=== PATIENT | female | born 1945 | race Caucasian/White ===

== ENCOUNTER 2016-11-22 12:30 | Emergency (ER) | payer OTHER ==
--- NOTE | 2016-11-22 14:35 | DIAGNOSTIC IMAGING REPORT ---
PROCEDURE: US VENOUS - LEFT EXT INDICATION: PAIN TECHNIQUE: Duplex sonography of the deep venous system in the left lower extremity was performed. Compression and augmentation techniques were used. COMPARISON: None. FINDINGS: There is an occlusive mid and nonocclusive proximal greater saphenous vein thrombus. Otherwise, common femoral, superficial femoral, popliteal and calf veins are patent with normal compression. IMPRESSION: 1. Left lower extremity superficial phlebitis 2. Results discussed with Yoana Guathier.
--- NOTE | 2016-11-22 15:14 | ED NURSING NOTES ---
Clinical Report - Nurses [facility] [address] [place] [address] 11/22/2016 12:35 Patient: ERON SNELL TRIAGE Triage time 12:43. Acuity: LEVEL 3. Chief Complaint: INJURY TO THE LEFT THIGH. Alert. No acute distress. GRACIE COMA SCORE: [place] Coma Scale: 15- eyes open spontaneously (4); best verbal response- oriented x 4 (5); best motor response- obeys commands (6). --12:59 Jaylin Rodas R.N. 12:43 11/22/16. BP: 129/60. HR: 80. RR: 18. O2 saturation: 99%. Temp: 97.7 F. Pain level now: 4/10. Additional comments: 7, when walking. --12:59 Jaylin Rodas R.N. 12:43 11/22/16. BP: 129/60. HR: 80. RR: 18. O2 saturation: 99%. Temp: 97.7 F. Pain level now: 4/10. Additional comments: 7, when walking. --12:59 Jaylin Rodas R.N. Weight: 74.8 kg stated. Height/Length: 62 inches Per Patient. BMI: 30.2. --12:58 Jaylin Rodas R.N. Medications Vits, multi day . --12:48 Jaylin Rodas R.N. PHENobarbital Oral 30mg am 2 tabs pm . --12:50 Jaylin Rodas R.N. Dilantin Oral 100 mg am, 2 pills hs , m, w, f, / s,s,t, th 2 tabs am 2 tabs pm . --12:51 Jaylin Rodas R.N. Lipitor Oral 20 mg, daily. --12:54 Jaylin Rodas R.N. Singulair Oral 10 mg, daily. --12:54 Jaylin Rodas R.N. Piroxicam Oral (Capsule 20 mg) 1 capsule, as needed. --12:55 Jaylin Rodas R.N. Omeprazole Oral 20 mg, daily. --12:55 Jaylin Rodas R.N. Medication/allergy information source: the patient. --12:59 Jaylin Rodas R.N. Allergies Latex. --12:55 Jaylin Rodas R.N. History Historian: patient. Arrived walking. Primary physician (Tabatha). This occurred (10 days ago). Occurred at home. Mechanism of injury: a blow (Ran into something, inside the home, can't). She has had trouble walking. The patient has been limping when trying to walk. 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 PAST MEDICAL HX: Tetanus status: more than 5 years ago. The patient is post-menopausal. ( seizures,). SOCIAL HX: Never smoker. No alcohol use or drug use. FALL RISK ASSESSMENT: Fall risk assessment completed. No fall risk identified. NUTRITIONAL RISK ASSESSMENT: The nutritional risk assessment revealed no deficiencies. FUNCTIONAL ASSESSMENT: Functional assessment: no impairments noted. LEARNING NEEDS ASSESSMENT: The learning needs assessment revealed no barriers. SKIN INTEGRITY ASSESSMENT: Skin integrity risk assessment completed. No skin integrity risk identified. --12:59 Jaylin Rodas R.N. PROBLEMS: Seizure. Reflux. Hypercholesterolemia. Arthritis. --12:57 Jaylin Rodas R.N. ADDITIONAL SURGERIES: no known surgeries. Interventions ID band on patient. To room. --12:59 Jaylin Rodas R.N. PHYSICAL ASSESSMENT Ambulatory to room. Patient gowned. GENERAL / NEURO / PSYCH: Appears in pain and anxious. EXTREMITIES: Limited ROM present. Left thigh: tenderness, swelling and erythema. SKIN: Skin is warm and dry. --13:00 Jaylin Rodas R.N. NURSING PROGRESS NOTES Cold pack applied. Extremity elevated. Patient gowned. Two patient identifiers checked. Call light placed in reach. Side rails up x 2. Bed placed in lowest position. Brakes of bed on. Patient ready for evaluation. --13:00 Jaylin Rodas R.N. 16:01 11/22/2016 Ceftriaxone IM 1 gm given. Given in the left gluteus damaris. Allergies verified and confirmed 5 rights. --16:06 Jaylin Rodas R.N. DISPOSITION / DISCHARGE 16:00. Condition at departure: improved. No learning barriers present. Discharge instructions provided and reviewed with the patient. Reviewed medication(s) side effects, precautions, dosing and course information. Prescription(s) given to the patient. Patient verbalized understanding. Written instructions provided in Tajik. The patient was discharged home. She left the Emergency Department ambulatory and via private vehicle. Patient driving. Medication list reviewed and validated. --18:43 Jaylin Rodas R.N. 16:02 11/22/16. BP: 117/64. HR: 84. RR: 16. O2 saturation: 100%. Temp: deferred. Pain level now: 08/26. 14:21 11/22/16. BP: 126/77. HR: 74. RR: 18. O2 saturation: 99%. Pain level now: 09/23. 12:43 11/22/16. BP: 129/60. HR: 80. RR: 18. O2 saturation: 99%. Temp: 97.7 F. Pain level now: 10. Additional comments: 7, when walking. --18:43 Jaylin Rodas R.N. Locked/Released at 11/22/2016 18:44 by Jaylin Rodas R.N.
--- NOTE | 2016-11-22 15:14 | ED ORDER SUMMARY ---
..... Patient: ERON SNELL OrderSheet [facility] VisitID: [id number] [address] [place] [address] 71y, F Registration Date/Time: 11/22/2016 ORDER SHEET Weight: 74.8 kg (stated) Allergies: Latex GENERAL ORDERS: US Venous Left Urgent (13:05 11/22/2016 HBivens A.R.N.P.) (Ack 13:07 Henrique) (15:29 MWinterer R.N.) MEDICATION ORDERS: Ceftriaxone IM 1 gm (NOW) (14:59 11/22/2016 HBivens A.R.N.P.) (Ack 15:33 MWinterer R.N.) (16:06 Paul R.N.) IV FLUIDS: ORDER SHEET NOTES: [Electronically signed by Yoana GauthierRCourtN.PCourt (18:02 11/22/2016)] [Electronically signed by Jaylin Rodas R.N. (18:44 11/22/2016)] [Electronically locked/signed by Jaylin Rodas R.N. (18:44 11/22/2016)]
--- NOTE | 2016-11-22 15:14 | ED CLINICAL REPORT ---
Clinical Report - Physicians/Mid Levels [facility] [address] [place] [address] 11/22/2016 12:35 Patient: ERON SNELL Time Seen: 1255; initial patient contact, initial documentation, patient care assumed. Arrived- By private vehicle. Historian- patient. HISTORY OF PRESENT ILLNESS Chief Complaint: LOWER EXTREMITY PAIN. Not worsened by anything and relieved by anything. Severity is described as being mild. The quality is noted to be "pain". No radiation. This started about 10 days ago and is still present and worsening. Symptoms located in the area of the left thigh. The patient has had moderate redness (small red hard area to inner thigh started about 10 days ago, now there is surrounding redness has gotten bigger, but the hard spot same size). No swelling, bladder dysfunction, bowel dysfunction, sensory loss or motor loss. She has had mild difficulty walking. It has been associated with pain in the left leg. Patient denies an injury. Similar symptoms previously: None. Recent medical care: Not recently seen/assessed. REVIEW OF SYSTEMS No chest pain, difficulty breathing or fever. All systems otherwise negative, except as recorded above. PAST HISTORY See nurses notes. ( PROBLEMS: Seizure. Reflux. Hypercholesterolemia. Arthritis. --12:57 Jaylin Rodas R.N. ADDITIONAL SURGERIES: no known surgeries.). SOCIAL HISTORY Never smoker. No alcohol use or drug use. No recent travel. Is a local resident. FAMILY HISTORY Negative. ADDITIONAL NOTES The nursing notes have been reviewed with agreement regarding the chief complaint, HPI, ROS, PMH and patient medications and allergies. PHYSICAL EXAM Vital Signs: 11/22/2016 12:43 BP: 129/60. HR: 80. RR: 18. O2 saturation: 99%. Temp: 97.7 F. Pain level now: 4/10. Have been reviewed as normal and appear to be correct. Appearance: Alert. Oriented X3. No acute distress. Eyes: Pupils equal, round and reactive to light. Eyes normal inspection. Neck: Normal inspection. Neck supple. CVS: Normal heart rate and rhythm. Heart sounds normal. Respiratory: No respiratory distress. Breath sounds normal. Back: Normal inspection. No tenderness. ROM normal. Skin: Skin intact. Skin warm and dry. Normal skin color. Normal skin turgor. Extremities: Left thigh: moderate erythema and mild tenderness located in the medial aspect of upper thigh. Neurovascular intact distally. (pea size hard knot with surrounding erythema, pt had ice on it prior to exam, so unable to determine how much erythema is from ice or from event, and unable to determine temperature, if area was warm). No swelling, laceration, abrasion, ecchymosis or puncture wound. No foreign body or deformity. Lower extremities exhibit normal ROM. No lower extremity edema. Extremities otherwise negative. Gait: Abnormal gait. Gait not tested due to pain. Neuro: Oriented X 3. No motor deficit. No sensory deficit. LABS, X-RAYS, AND EKG Lower Extremity Sonography: . superficial phlebitis. The study was interpreted by the radiologist and discussed with the radiologist. Interpretation time: 1435. PROGRESS AND PROCEDURES Course of Care: pt thanking me for everything and telling I did such a good job with her who in October also said she was still trying to get financial stuff situated from his , and if I could do abx here and cheap rx that would be helpful, agreed to do $4 abx and shot here 17:15 11/22/16. nurse now telling me pt left and left her papers and rx at bedside. Patient counseled in person regarding the patient's stable condition, test results and diagnosis. 14:55. Differential Diagnosis: Other possible considerations: dvt, cellulitis, abscess, mrsa, dermatitis, fungus, insect bite/sting. Above considerations are based on history, physical exam, reassessment and other information. Differential diagnosis was discussed with patient. Disposition: Discharged home in good and improved condition (15:14). Condition: good and stable. CLINICAL IMPRESSION Superficial thrombophlebitis of the left leg. Not associated with the puerperium, or . INSTRUCTIONS Warnings: GENERAL WARNINGS: Return or contact your physician immediately if your condition worsens or changes unexpectedly, if not improving as expected, or if other problems arise. Specifically return if problem worsens. Prescription Medications: Trimethoprim-Sulfamethoxazole DS: take 1 tablet orally every 12 hours for 10 days. No refill. Follow-up: Follow up with your doctor in about three days even if well. Call for an appointment. Summary of care provided to patient. Understanding of the discharge instructions verbalized by patient. (Electronically signed by Yoana Gauthier A.R.N.P. 11/22/2016 18:02)
--- NOTE | 2016-11-22 15:14 | ED ORDER SUMMARY ---
..... Patient: ERON SNELL OrderSheet [facility] VisitID: [id number] [address] [place] [address] 71y, F Registration Date/Time: 11/22/2016 ORDER SHEET Weight: 74.8 kg (stated) Allergies: Latex GENERAL ORDERS: US Venous Left Urgent (13:05 11/22/2016 HBivens A.R.N.P.) (Ack 13:07 Henrique) (15:29 MWinterer R.N.) MEDICATION ORDERS: Ceftriaxone IM 1 gm (NOW) (14:59 11/22/2016 HBivens A.R.N.P.) (Ack 15:33 MWinterer R.N.) (16:06 Paul R.N.) IV FLUIDS: ORDER SHEET NOTES: [Electronically signed by Yoana GauthierRCourtN.PCourt (18:02 11/22/2016)] [Electronically signed by Jaylin Rodas R.N. (18:44 11/22/2016)] [Electronically locked/signed by Jaylin Rodas R.N. (18:44 11/22/2016)]
--- NOTE | 2016-11-22 15:14 | ED NURSING NOTES ---
Clinical Report - Nurses [facility] [address] [place] [address] 11/22/2016 12:35 Patient: ERON SNELL TRIAGE Triage time 12:43. Acuity: LEVEL 3. Chief Complaint: INJURY TO THE LEFT THIGH. Alert. No acute distress. GRACIE COMA SCORE: [place] Coma Scale: 15- eyes open spontaneously (4); best verbal response- oriented x 4 (5); best motor response- obeys commands (6). --12:59 Jaylin Rodas R.N. 12:43 11/22/16. BP: 129/60. HR: 80. RR: 18. O2 saturation: 99%. Temp: 97.7 F. Pain level now: 4/10. Additional comments: 7, when walking. --12:59 Jaylin Rodas R.N. 12:43 11/22/16. BP: 129/60. HR: 80. RR: 18. O2 saturation: 99%. Temp: 97.7 F. Pain level now: 4/10. Additional comments: 7, when walking. --12:59 Jaylin Rodas R.N. Weight: 74.8 kg stated. Height/Length: 62 inches Per Patient. BMI: 30.2. --12:58 Jaylin Rodas R.N. Medications Vits, multi day . --12:48 Jaylin Rodas R.N. PHENobarbital Oral 30mg am 2 tabs pm . --12:50 Jaylin Rodas R.N. Dilantin Oral 100 mg am, 2 pills hs , m, w, f, / s,s,t, th 2 tabs am 2 tabs pm . --12:51 Jaylin Rodas R.N. Lipitor Oral 20 mg, daily. --12:54 Jaylin Rodas R.N. Singulair Oral 10 mg, daily. --12:54 Jaylin Rodas R.N. Piroxicam Oral (Capsule 20 mg) 1 capsule, as needed. --12:55 Jaylin Rodas R.N. Omeprazole Oral 20 mg, daily. --12:55 Jaylin Rodas R.N. Medication/allergy information source: the patient. --12:59 Jaylin Rodas R.N. Allergies Latex. --12:55 Jaylin Rodas R.N. History Historian: patient. Arrived walking. Primary physician (Tabatha). This occurred (10 days ago). Occurred at home. Mechanism of injury: a blow (Ran into something, inside the home, can't). She has had trouble walking. The patient has been limping when trying to walk. 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 PAST MEDICAL HX: Tetanus status: more than 5 years ago. The patient is post-menopausal. ( seizures,). SOCIAL HX: Never smoker. No alcohol use or drug use. FALL RISK ASSESSMENT: Fall risk assessment completed. No fall risk identified. NUTRITIONAL RISK ASSESSMENT: The nutritional risk assessment revealed no deficiencies. FUNCTIONAL ASSESSMENT: Functional assessment: no impairments noted. LEARNING NEEDS ASSESSMENT: The learning needs assessment revealed no barriers. SKIN INTEGRITY ASSESSMENT: Skin integrity risk assessment completed. No skin integrity risk identified. --12:59 Jaylin Rodas R.N. PROBLEMS: Seizure. Reflux. Hypercholesterolemia. Arthritis. --12:57 Jaylin Rodas R.N. ADDITIONAL SURGERIES: no known surgeries. Interventions ID band on patient. To room. --12:59 Jaylin Rodas R.N. PHYSICAL ASSESSMENT Ambulatory to room. Patient gowned. GENERAL / NEURO / PSYCH: Appears in pain and anxious. EXTREMITIES: Limited ROM present. Left thigh: tenderness, swelling and erythema. SKIN: Skin is warm and dry. --13:00 Jaylin Rodas R.N. NURSING PROGRESS NOTES Cold pack applied. Extremity elevated. Patient gowned. Two patient identifiers checked. Call light placed in reach. Side rails up x 2. Bed placed in lowest position. Brakes of bed on. Patient ready for evaluation. --13:00 Jaylin Rodas R.N. 16:01 11/22/2016 Ceftriaxone IM 1 gm given. Given in the left gluteus damaris. Allergies verified and confirmed 5 rights. --16:06 Jaylin Rodas R.N. DISPOSITION / DISCHARGE 16:00. Condition at departure: improved. No learning barriers present. Discharge instructions provided and reviewed with the patient. Reviewed medication(s) side effects, precautions, dosing and course information. Prescription(s) given to the patient. Patient verbalized understanding. Written instructions provided in Cypriot. The patient was discharged home. She left the Emergency Department ambulatory and via private vehicle. Patient driving. Medication list reviewed and validated. --18:43 Jaylin Rodas R.N. 16:02 11/22/16. BP: 117/64. HR: 84. RR: 16. O2 saturation: 100%. Temp: deferred. Pain level now: 08/26. 14:21 11/22/16. BP: 126/77. HR: 74. RR: 18. O2 saturation: 99%. Pain level now: 09/23. 12:43 11/22/16. BP: 129/60. HR: 80. RR: 18. O2 saturation: 99%. Temp: 97.7 F. Pain level now: 10. Additional comments: 7, when walking. --18:43 Jaylin Rodas R.N. Locked/Released at 11/22/2016 18:44 by Jaylin Rodas R.N.
--- NOTE | 2016-11-22 18:44 | ED DISCHARGE INSTRUCTIONS ---
Patient: ERON SNELL General Instructions [facility] VisitID: [id number] [place] [address] 71y, F Registration Date/Time: 11/22/2016 Superficial thrombophlebitis of the left leg. Not associated with the puerperium, or . INSTRUCTIONS Warnings: GENERAL WARNINGS: Return or contact your physician immediately if your condition worsens or changes unexpectedly, if not improving as expected, or if other problems arise. Specifically return if problem worsens. Prescription Medications: Trimethoprim-Sulfamethoxazole DS: take 1 tablet orally every 12 hours for 10 days. No refill. Follow-up: Follow up with your doctor in about three days even if well. Call for an appointment. Summary of care provided to patient. Understanding of the discharge instructions verbalized by patient. ADDITIONAL INFORMATION Phlebitis, Superficial Phlebitis is the name for inflammation of a vein. This results in local redness, swelling, warmth and pain. This may occur after medicine has been given by vein as a result of the irritating effect of the medicine. It can also occur as a result of IV drug use. Superficial phlebitis involves only those veins close to the surface. There is no danger of a clot traveling to the lung or brain, unlike deep blood clots of the legs. Therefore, this condition can be safely treated at home. Home Care: Heat is helpful. Use a heating pad or soak the inflamed part in a hot tub for 10 minutes at a time. You may use ibuprofen (Motrin, Advil) to control pain, unless another medicine was prescribed. [ NOTE : If you have chronic kidney disease or ever had a stomach ulcer or GI bleeding, talk with your doctor before using these medicines.] If Your Leg Is Affected: Unless pain is severe, you may walk. It is important to sit often and elevate the leg. Avoid prolonged sitting or standing. Use support hose or an elastic wrap to compress the leg and reduce swelling. If Your Arm Is Affected: Elevate the arm. If you were given a sling, take your arm out from time to time and move it around to increase the circulation. Use an elastic wrap if there is a lot of swelling. Follow Up with your doctor as advised. Get Prompt Medical Attention if any of the following occur: Shortness of breath or painful breathing Chest pain or cough Fever of 100.4F (38C) or higher, or as directed by your healthcare provider Increasing swelling or pain Spreading redness Sulfamethoxazole, Trimethoprim Oral tablet What is this medicine? SULFAMETHOXAZOLE; TRIMETHOPRIM or SMX-TMP (suhl fuh meth OK enrike zohl; trye METH oh prim) is a combination of a sulfonamide antibiotic and a second antibiotic, trimethoprim. It is used to treat or prevent certain kinds of bacterial infections. It will not work for colds, flu, or other viral infections. How should I use this medicine? Take this medicine by mouth with a full glass of water. Follow the directions on the prescription label. Take your medicine at regular intervals. Do not take it more often than directed. Do not skip doses or stop your medicine early. Talk to your respiratory practitioner regarding the use of this medicine in children. Special care may be needed. This medicine has been used in children as young as 2 months of age. What side effects may I notice from receiving this medicine? Side effects that you should report to your doctor or health child care center assistant director as soon as possible: allergic reactions like skin rash or hives, swelling of the face, lips, or tongue breathing problems fever or chills, sore throat irregular heartbeat, chest pain joint or muscle pain pain or difficulty passing urine red pinpoint spots on skin redness, blistering, peeling or loosening of the skin, including inside the mouth unusual bleeding or bruising unusually weak or tired yellowing of the eyes or skin Side effects that usually do not require medical attention (report to your doctor or health child care center assistant director if they continue or are bothersome): diarrhea dizziness headache loss of appetite nausea, vomiting nervousness What may interact with this medicine? Do not take this medicine with any of the following medications: aminobenzoate potassium dofetilide metronidazole This medicine may also interact with the following medications: KARISHMA inhibitors like benazepril, enalapril, lisinopril, and ramipril cyclosporine digoxin diuretics indomethacin medicines for diabetes methenamine methotrexate phenytoin potassium supplements pyrimethamine sulfinpyrazone tricyclic antidepressants warfarin What if I miss a dose? If you miss a dose, take it as soon as you can. If it is almost time for your next dose, take only that dose. Do not take double or extra doses. Where should I keep my medicine? Keep out of the reach of children. Store at room temperature between 20 to 25 degrees C (68 to 77 degrees F). Protect from light. Throw away any unused medicine after the expiration date. What should I tell my health care provider before I take this medicine? They need to know if you have any of these conditions: anemia asthma being treated with anticonvulsants if you frequently drink alcohol containing drinks kidney disease liver disease low level of folic acid or [id number]-[id number]-sfnehevue dehydrogenase poor nutrition or malabsorption porphyria severe allergies thyroid disorder an unusual or allergic reaction to sulfamethoxazole, trimethoprim, sulfa drugs, other medicines, foods, dyes, or preservatives or trying to get breast-feeding What should I watch for while using this medicine? Tell your doctor or health child care center assistant director if your symptoms do not improve. Drink several glasses of water a day to reduce the risk of kidney problems. Do not treat diarrhea with over the counter products. Contact your doctor if you have diarrhea that lasts more than 2 days or if it is severe and watery. This medicine can make you more sensitive to the sun. Keep out of the sun. If you cannot avoid being in the sun, wear protective clothing and use a sunscreen. Do not use sun lamps or tanning beds/booths. You have been given the following additional information: Thrombophlebitis, Superficial Sulfamethoxazole, Trimethoprim Oral tablet (Electronically signed by Yoana Gauthier A.R.N.P. 11/22/2016 18:02)
--- NOTE | 2016-11-22 18:44 | ED MAR SUMMARY ---
..... Medication Administration Record [facility] [address] [place] [address] Patient: ERON SNELL Visit ID: [id number] 71y, F Weight: 74.8 kg Height/Length: 62 in BMI: 30.2 ALLERGIES: Latex Given 16:01 11/22/2016 Jaylin Rodas R.N. Medication Administered: CEFTRIAXONE [IM], Dose: 1 gm IM. Medication Ordered: Ceftriaxone IM 1 gm (NOW).
--- NOTE | 2016-11-22 18:44 | ED MED RECONCILIATION SUMMARY ---
Patient: ERON SNELL Medication Reconciliation Report [facility] VisitID: [id number] [address] [place] [place] [address] 71y, F Registration Date/Time: 11/22/2016 Weight: 74.8 kg Height/Length: 62 in. BMI: 30.2 ALLERGIES: Latex The patient's Home Medications are listed below: THE FOLLOWING MEDICATIONS NEED TO BE RECONCILED: Dilantin Oral 100 mg am, 2 pills hs , m, w, f, / s,s,t, th 2 tabs am 2 tabs pm Lipitor Oral 20 mg, daily Omeprazole Oral 20 mg, daily PHENobarbital Oral 30mg am 2 tabs pm Piroxicam Oral (20 mg) 1 capsule Singulair Oral 10 mg, daily Vits, multi day The source(s) of the original Home Medication information: patient The following Medications were given to the patient in the Emergency Department: Ceftriaxone [IM] IM 1 gm, administered: 11/22/2016 4:01:00 PM The following Medications were prescribed to the patient: Trimethoprim-Sulfamethoxazole DS: take 1 tablet orally every 12 hours for 10 days. No refill. -- Yoana Gauthier A.R.N.P.
--- NOTE | 2016-11-22 18:44 | ED MAR SUMMARY ---
..... Medication Administration Record [facility] [address] [place] [address] Patient: ERON SNELL Visit ID: [id number] 71y, F Weight: 74.8 kg Height/Length: 62 in BMI: 30.2 ALLERGIES: Latex Given 16:01 11/22/2016 Jaylin Rodas R.N. Medication Administered: CEFTRIAXONE [IM], Dose: 1 gm IM. Medication Ordered: Ceftriaxone IM 1 gm (NOW).
--- NOTE | 2016-11-22 18:44 | ED DISCHARGE INSTRUCTIONS ---
Patient: ERON SNELL General Instructions [facility] VisitID: [id number] [place] [address] 71y, F Registration Date/Time: 11/22/2016 Superficial thrombophlebitis of the left leg. Not associated with the puerperium, or . INSTRUCTIONS Warnings: GENERAL WARNINGS: Return or contact your physician immediately if your condition worsens or changes unexpectedly, if not improving as expected, or if other problems arise. Specifically return if problem worsens. Prescription Medications: Trimethoprim-Sulfamethoxazole DS: take 1 tablet orally every 12 hours for 10 days. No refill. Follow-up: Follow up with your doctor in about three days even if well. Call for an appointment. Summary of care provided to patient. Understanding of the discharge instructions verbalized by patient. ADDITIONAL INFORMATION Phlebitis, Superficial Phlebitis is the name for inflammation of a vein. This results in local redness, swelling, warmth and pain. This may occur after medicine has been given by vein as a result of the irritating effect of the medicine. It can also occur as a result of IV drug use. Superficial phlebitis involves only those veins close to the surface. There is no danger of a clot traveling to the lung or brain, unlike deep blood clots of the legs. Therefore, this condition can be safely treated at home. Home Care: Heat is helpful. Use a heating pad or soak the inflamed part in a hot tub for 10 minutes at a time. You may use ibuprofen (Motrin, Advil) to control pain, unless another medicine was prescribed. [ NOTE : If you have chronic kidney disease or ever had a stomach ulcer or GI bleeding, talk with your doctor before using these medicines.] If Your Leg Is Affected: Unless pain is severe, you may walk. It is important to sit often and elevate the leg. Avoid prolonged sitting or standing. Use support hose or an elastic wrap to compress the leg and reduce swelling. If Your Arm Is Affected: Elevate the arm. If you were given a sling, take your arm out from time to time and move it around to increase the circulation. Use an elastic wrap if there is a lot of swelling. Follow Up with your doctor as advised. Get Prompt Medical Attention if any of the following occur: Shortness of breath or painful breathing Chest pain or cough Fever of 100.4F (38C) or higher, or as directed by your healthcare provider Increasing swelling or pain Spreading redness Sulfamethoxazole, Trimethoprim Oral tablet What is this medicine? SULFAMETHOXAZOLE; TRIMETHOPRIM or SMX-TMP (suhl fuh meth OK enrike zohl; trye METH oh prim) is a combination of a sulfonamide antibiotic and a second antibiotic, trimethoprim. It is used to treat or prevent certain kinds of bacterial infections. It will not work for colds, flu, or other viral infections. How should I use this medicine? Take this medicine by mouth with a full glass of water. Follow the directions on the prescription label. Take your medicine at regular intervals. Do not take it more often than directed. Do not skip doses or stop your medicine early. Talk to your system programmer regarding the use of this medicine in children. Special care may be needed. This medicine has been used in children as young as 2 months of age. What side effects may I notice from receiving this medicine? Side effects that you should report to your doctor or health child care coordinator as soon as possible: allergic reactions like skin rash or hives, swelling of the face, lips, or tongue breathing problems fever or chills, sore throat irregular heartbeat, chest pain joint or muscle pain pain or difficulty passing urine red pinpoint spots on skin redness, blistering, peeling or loosening of the skin, including inside the mouth unusual bleeding or bruising unusually weak or tired yellowing of the eyes or skin Side effects that usually do not require medical attention (report to your doctor or health child care coordinator if they continue or are bothersome): diarrhea dizziness headache loss of appetite nausea, vomiting nervousness What may interact with this medicine? Do not take this medicine with any of the following medications: aminobenzoate potassium dofetilide metronidazole This medicine may also interact with the following medications: KARISHMA inhibitors like benazepril, enalapril, lisinopril, and ramipril cyclosporine digoxin diuretics indomethacin medicines for diabetes methenamine methotrexate phenytoin potassium supplements pyrimethamine sulfinpyrazone tricyclic antidepressants warfarin What if I miss a dose? If you miss a dose, take it as soon as you can. If it is almost time for your next dose, take only that dose. Do not take double or extra doses. Where should I keep my medicine? Keep out of the reach of children. Store at room temperature between 20 to 25 degrees C (68 to 77 degrees F). Protect from light. Throw away any unused medicine after the expiration date. What should I tell my health care provider before I take this medicine? They need to know if you have any of these conditions: anemia asthma being treated with anticonvulsants if you frequently drink alcohol containing drinks kidney disease liver disease low level of folic acid or [id number] dehydrogenase poor nutrition or malabsorption porphyria severe allergies thyroid disorder an unusual or allergic reaction to sulfamethoxazole, trimethoprim, sulfa drugs, other medicines, foods, dyes, or preservatives or trying to get breast-feeding What should I watch for while using this medicine? Tell your doctor or health child care coordinator if your symptoms do not improve. Drink several glasses of water a day to reduce the risk of kidney problems. Do not treat diarrhea with over the counter products. Contact your doctor if you have diarrhea that lasts more than 2 days or if it is severe and watery. This medicine can make you more sensitive to the sun. Keep out of the sun. If you cannot avoid being in the sun, wear protective clothing and use a sunscreen. Do not use sun lamps or tanning beds/booths. You have been given the following additional information: Thrombophlebitis, Superficial Sulfamethoxazole, Trimethoprim Oral tablet (Electronically signed by Yoana Gauthier A.R.N.P. 11/22/2016 18:02)
--- NOTE | 2016-11-22 18:44 | ED MED RECONCILIATION SUMMARY ---
Patient: ERON SNELL Medication Reconciliation Report [facility] VisitID: [id number] [address] [place] [address] 71y, F Registration Date/Time: 11/22/2016 Weight: 74.8 kg Height/Length: 62 in. BMI: 30.2 ALLERGIES: Latex The patient's Home Medications are listed below: THE FOLLOWING MEDICATIONS NEED TO BE RECONCILED: Dilantin Oral 100 mg am, 2 pills hs , m, w, f, / s,s,t, th 2 tabs am 2 tabs pm Lipitor Oral 20 mg, daily Omeprazole Oral 20 mg, daily PHENobarbital Oral 30mg am 2 tabs pm Piroxicam Oral (20 mg) 1 capsule Singulair Oral 10 mg, daily Vits, multi day The source(s) of the original Home Medication information: patient The following Medications were given to the patient in the Emergency Department: Ceftriaxone [IM] IM 1 gm, administered: 11/22/2016 4:01:00 PM The following Medications were prescribed to the patient: Trimethoprim-Sulfamethoxazole DS: take 1 tablet orally every 12 hours for 10 days. No refill. -- Yonaa Gauthier A.R.N.P.
== END 2016-11-22 16:00 | disposition home or self-care (01) ==
LOC: ED SRH 12:30
DX: I80.02 Phlebitis and thrombophlebitis of superficial vessels of left lower extremity (principal); E78.5 Hyperlipidemia, unspecified; Z79.899 Other long term (current) drug therapy; Z79.891 Long term (current) use of opiate analgesic; Z91.040 Latex allergy status